=== PATIENT | female | born 1985 | race African-American/Black ===

== ENCOUNTER 2020-05-14 09:13 | Emergency (ER) | payer OTHER ==
--- NOTE | 2020-05-14 09:24 | PDOC ---
Rapid Medical Evaluation Time Seen by Provider: 05/14/20 09:22 Medical Evaluation: Allergies Allergy/AdvReac Type Severity Reaction Status Date / Time No Known Allergies Allergy Verified 01/18/16 13:10 05/14/20 09:22 I performed a brief in-person evaluation of this patient. Pt is a 34 y/o female with presents to the ED with an abscess to the labia. She states that she noticed it a week ago and it got much worse 2 days ago. She denies any drainage. She was doing Sitz baths without any relief. She denies any past medical history. Pertinent physical exam findings: + obvious distress secondary to pain, vaginal exam deferred in triage I have ordered the following: none Patient to proceed to ED for further evaluation. Discharge Disposition - Diagnosis Abscess of vagina - Referrals - Patient Instructions - Post Discharge Activity
[2020-05-14 09:26] VITALS: BP 166/111; PULSE 118; TEMP 98.6; BMI 28.3
[2020-05-14] MEDS ORDERED: KETOROLAC TROMETHAMINE 60 MG/2 ML VIAL IM ONE (10:35)
[2020-05-14] MEDS ORDERED: KETOROLAC TROMETHAMINE 60 MG/2 ML VIAL ONE (10:44)
--- NOTE | 2020-05-14 11:09 | PDOC ---
History of Present Illness - General History Source: Patient Exam Limitations: Clinical Condition - History of Present Illness Initial Comments: 05/14/20 11:36 Patient with no significant past medical history present with complaint of one- week history of abscess to Bartholin gland. 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 Reported very painful to sit due to pain to right labial area from abscess. Denies fever, chills, vaginal discharge, nausea or vomiting.. Denies any other symptoms Is this a multiple visit Asthma Patient?: No Timing/Duration: 1 week <Narinder Quintanilla - Last Filed: 05/14/20 11:36> <Kristin Hrust - Last Filed: 05/14/20 14:34> - General Chief Complaint: Vaginal Sxs Stated Complaint: CYST / PAIN Time Seen by Provider: 05/14/20 09:22 Past History - Medical History COPD: No - Reproductive History (#): 5 Para: 1 - Immunization History Immunization Up to Date: Yes - Psycho-Social/Smoking History Smoking Status: Yes Smoking History: Current every day smoker Have you smoked in the past 12 months: Yes Number of Cigarettes Smoked Daily: 5 Information on smoking cessation initiated: No - Substance Abuse Hx (Audit-C & DAST Scrn) How often the patient has a drink containing alcohol: Never Score: In Men: 4 or > Positive; In Women: 3 or > Positive: 0 Screen Result (Pos requires Nsg. Audit-10AR): Negative In the last yr the pt used illegal drug/Rx for NonMed reason: No Score: Yes response is considered Positive: 0 Screen Result (Positive result requires Nsg. DAST-10): Negative <Narinder Quintanilla - Last Filed: 05/14/20 11:36> <Kristin Hurst - Last Filed: 05/14/20 14:34> - Medical History Allergies/Adverse Reactions: Allergies Allergy/AdvReac Type Severity Reaction Status Date / Time No Known Allergies Allergy Verified 05/14/20 09:26 Home Medications: Ambulatory Orders No Home Medications 0 dose .ROUTE UTDICT 01/20/13 Docusate Sodium [Colace -] 100 mg PO DAILY #30 capsule 01/18/16 Ibuprofen [Ibu] 800 mg PO Q8H PRN #16 tablet 07/09/20 Sulfamethoxazole/Trimethoprim [Bactrim Ds -] 1 tab PO BID #14 tablet 05/14/20 Review of Systems - Review of Systems Able to Perform ROS?: Yes Is the patient limited Yi proficient: No Constitutional: No: Chills, Fever, Malaise HEENTM: No: Symptoms Reported, See HPI, Eye Pain, Blurred Vision, Tearing, Recent change in vision, Double Vision, Cataracts, Ear Pain, Ocular Prothesis, Ear Discharge, Nose Pain, Nose Congestion, Tinnitus, Nose Bleeding, Hearing Loss, Throat Pain, Throat Swelling, Mouth Pain, Dental Problems, Difficulty Swallowing, Mouth Swelling, Other Respiratory: No: Symptoms reported, See HPI, Cough, Orthopnea, Shortness of B reath, SOB with Exertion, SOB at Rest, Stridor, Wheezing, Productive cough, Hemoptysis, Other Cardiac (ROS): No: Symptoms Reported, See HPI, Chest Pain, Edema, Irregular Heart Rate, Lightheadedness, Palpitations, Syncope, Chest Tightness, Other ABD/GI: No: Symptoms Reported : Yes: Symptoms Reported, See HPI, Other (Bartholin cyst). No: Burning, Dysuria, Discharge, Hematuria Musculoskeletal: No: Joint Swelling Integumentary: Yes: Symptoms Reported, See HPI, Lumps (Bartholin cyst) All Other Systems: Reviewed and Negative <Narinder Quintanilla - Last Filed: 05/14/20 11:36> *Physical Exam - Vital Signs Last Vital Signs Temp Pulse Resp BP Pulse Ox 98.6 F 118 H 19 166/111 H 100 05/14/20 09:24 05/14/20 09:24 05/14/20 09:24 05/14/20 09:24 05/14/20 09:24 - Physical Exam General Appearance: Yes: Nourished, Appropriately Dressed, Apparent Distress, Moderate Distress HEENT: positive: Normal ENT Inspection Neck: positive: Supple Respiratory/Chest: negative: Respiratory Distress, Accessory Muscle Use Female Pelvic Exam: positive: cervical os closed, Bartholin mass (3 cm by Bartholin abscess). negative: discharge, adnexal tenderness, vaginal bleeding Musculoskeletal: positive: Normal Inspection Integumentary: positive: Normal Color. negative: Erythema Neurologic: positive: Fully Oriented, Alert, Normal Mood/Affect, Normal Response <Narinder Quintainlla - Last Filed: 05/14/20 11:36> - Vital Signs Last Vital Signs Temp Pulse Resp BP Pulse Ox 98.6 F 118 H 19 166/111 H 100 05/14/20 09:24 05/14/20 09:24 05/14/20 09:24 05/14/20 09:24 05/14/20 09:24 <Kristin Hurst - Last Filed: 05/14/20 14:34> Procedures - Incision and Drainage I&D Site: Right: Bartholin Betadine cleansed: Yes Anesthesia: 1% Lidocaine Volume(ml): 1 Blade Size: 11 Plain Packing: No Complications: none Dressing: Yes Progress: 05/14/20 11:43 Wound drained after wound infiltrated with 1 cc 1% lidocaine with normal 11 blade. Moderate amount of purulent drainage obtained from wound. Wound culture obtained. Patient declined wound pack. Pressure dressing applied to wound. Patient tolerated procedure well. Patient stable for discharge to continue warm compresses and sitz bath to help with healing. <Narinder Quintanilla - Last Filed: 05/14/20 11:36> ED Treatment Course - Medications Given in the ED: ED Medications Discontinued Medications Generic Name Dose Route Start Last Admin Trade Name Freq PRN Reason Stop Dose Admin Ketorolac Tromethamine 60 mg 05/14/20 10:35 05/14/20 10:52 Toradol Injection - IM 05/14/20 10:36 60 mg ONCE ONE Administration <Narinder Quintanilla - Last Filed: 05/14/20 11:36> - ADDITIONAL ORDERS Additional order review: 05/14/20 12:00 Gram Stain - Final Abscess - Medications Given in the ED: ED Medications Discontinued Medications Generic Name Dose Route Start Last Admin Trade Name Freq PRN Reason Stop Dose Admin Ketorolac Tromethamine 60 mg 05/14/20 10:35 05/14/20 10:52 Toradol Injection - IM 05/14/20 10:36 60 mg ONCE ONE Administration <Kristin Hurst - Last Filed: 05/14/20 14:34> Medical Decision Making - Medical Decision Making 05/14/20 11:41 Patient with no significant past medical history present with complaint of one- week history of abscess to Bartholin gland. 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 Reported very painful to sit due to pain to right labial area from abscess. Denies fever, chills, vaginal discharge, nausea or vomiting.. Denies any other symptoms Exam significant for 3 cm fluctuant abscess to right Bartholin gland. No skin erythema. No drainage from abscess. Patient afebrile. Toradol 60 mg IM given for pain. Wound drained after wound infiltrated with 1 cc 1% lidocaine with normal 11 blade. Moderate amount of purulent drainage obtained from wound. Wound culture obtained. Patient declined wound pack. Pressure dressing applied to wound. Patient tolerated procedure well. Patient stable for discharge to continue warm compresses and sitz bath to help with healing. Will DC on Bactrim antibiotics twice daily for a week and Motrin PRN for pain. Patient to follow-up with [facility] in 2 to 5 days for reassessment. Patient was understanding of discharge instruction patient stable for discharge <Narinder Quintanilla - Last Filed: 05/14/20 11:36> - Medical Decision Making The patient was seen and evaluated in conjunction with midlevel provider under my direct supervision, ancillary studies were reviewed. I agree with the plan as outlined with_CARSON Quintanilla. HPI, workup/dispo as outlined. VS reviewed, nonfebrile. tachy likely pain/infection, bartholin's cyst htn likely pain. Vital Signs Temp Pulse Resp BP Pulse Ox 98.6 F 118 H 19 166/111 H 100 05/14/20 09:24 05/14/20 09:24 05/14/20 09:24 05/14/20 09:24 05/14/20 09:24 bartholin's cyst, drained word catheter placed sitz baths, warm compresses, pain control otc meds anticipate discharge, marketing analyst/ followup, return precautions 05/14/20 14:33 05/14/20 14:33 <Kristin Hurst - Last Filed: 05/14/20 14:34> Discharge - Discharge Information Problems reviewed: Yes - Admission No <Narinder Quintanilla - Last Filed: 05/14/20 11:36> <Kristin Hurst - Last Filed: 05/14/20 14:34> - Discharge Information Clinical Impression/Diagnosis: Abscess of right Bartholin's gland Condition: Stable Disposition: HOME - Additional Discharge Information Prescriptions: Sulfamethoxazole/Trimethoprim [Bactrim Ds -] 1 tab PO BID #14 tablet Ibuprofen [Ibu] 800 mg PO Q8H PRN #16 tablet PRN Reason: pain - Follow up/Referral Referrals: Claudine Douglas MD [Primary Care Provider] - - Patient Discharge Instructions Patient Printed Discharge Instructions: DI for Bartholin Gland Cyst Additional Instructions: Keep wound clean and dry for the next 24 hours. Continue with warm compresses to abscess area and continue with stilts pad to help with healing. Take prescribed antibiotics and finish. Follow-up with your [facility] in 3 to 5 days for follow-up - Post Discharge Activity
== END 2020-05-14 11:38 | disposition home or self-care (01) ==
LOC: JER 09:13
PROC: 0U9MXZZ Drainage of Vulva, External Approach (ICD-10-PCS; principal; 2020-05-14)
PROC: 3E023GC Introduction of Other Therapeutic Substance into Muscle, Percutaneous Approach (ICD-10-PCS; principal; 2020-05-14)
DX: N75.1 Abscess of Bartholin's gland (principal)
CPT/HCPCS: 87070; 87205; 99284-25